=== PATIENT | male | born 1950 | race Caucasian/White ===

== ENCOUNTER 2021-08-05 09:56 | Outpatient (CLI) | payer MEDICARE ==
[2021-08-05 10:56] LABS: Hemoglobin 15.1 g/dL (13.5-17.5); Mean Corpuscular HGB CONC 33.7 g/dL (32.0-36.0); Mean Corpuscular Hemoglobin 30.8 pg (27.0-33.0); Mean Corpuscular Volume 91.2 fl (81.2-95.1); Mean Platelet Volume 9.2 fl (7.4-10.4); Platelet Count 192 10x3/uL (150-450); RBC Distribution Width 12.1 % (11.5-14.5); Red Blood Cell (RBC) Count 4.91 10x6/uL (4.32-5.72); White Blood Cell (WBC) Count 4.7 10x3/uL (3.5-10.5)
[2021-08-05 11:05] LABS: PTT 26.8 sec (22.0-33.0); Prothrombin Time 10.7 sec (9.5-12.1)
[2021-08-05 11:15] LABS: Anion Gap 11 mmol/L (10-20); BUN (Urea Nitrogen) 20 mg/dL (8.4-25.7); Calc. Creatinine Clearance 0 mL/min (70-130); Calcium 9.6 mg/dL (7.8-10.44); Carbon Dioxide 26 mmol/L (23-31); Chloride 107 mmol/L (98-107); Glucose 103 mg/dL (80-115); Potassium 4.4 mmol/L (3.5-5.1); Sodium 140 mmol/L (136-145)
[2021-08-05 19:56] LABS: SARS-CoV-2 PCR by NAA Not Detected (NotDetected)
== END 2021-08-05 09:57 | disposition home or self-care (01) ==
LOC: CSHLAB 09:56
PROVIDERS: ATTEND Specialist
DX: Z01.818 Encounter for other preprocedural examination (principal); Z20.822 Contact with and (suspected) exposure to COVID-19
CPT/HCPCS: 71045; 80048; 85027; 85610; 85730; U0003; U0005

== ENCOUNTER 2021-08-10 07:57 | Day surgery (SDC) | payer MEDICARE ==
[2021-08-10 08:55] VITALS: BP 137/67; TEMP 98
[2021-08-10] MEDS ORDERED: Fentanyl 100 MCG/2 ML VIAL ONE (09:03)
[2021-08-10] MEDS ORDERED: Midazolam HCl 2 mg/2 ml Vial ONE (09:04)
[2021-08-10] MEDS ORDERED: Atropine Sulfate 0.4 mg/1 ml Vial ONE (09:08)
[2021-08-10] MEDS ORDERED: PHENYLEPHRINE-NS 100 MCG/ML 10 ML SYRINGE ONE (09:09)
[2021-08-10] MEDS ORDERED: Lidocaine 1% (PF) 30 ML VIAL ONE (09:17)
[2021-08-10] MEDS ORDERED: Acetaminophen 325 MG TAB ONE (11:08)
== END 2021-08-10 13:05 | disposition home or self-care (01) ==
LOC: CSHSDC 07:57
PROVIDERS: ATTEND Specialist
DX: I65.23 Occlusion and stenosis of bilateral carotid arteries (principal); Q25.49 Other congenital malformations of aorta; I25.10 Atherosclerotic heart disease of native coronary artery without angina pectoris; G47.30 Sleep apnea, unspecified; E78.2 Mixed hyperlipidemia; Z79.899 Other long term (current) drug therapy; Z79.82 Long term (current) use of aspirin
CPT/HCPCS: 36222; 36227; C1760; 99152; J0461; J2001; J2250; J3010

== ENCOUNTER 2021-08-17 12:57 | Outpatient (CLI) | payer MEDICARE | END 2021-08-17 12:58 | disposition home or self-care (01) | LOC: CSHCT 12:57 | PROVIDERS: ATTEND Specialist | DX: M75.91 Shoulder lesion, unspecified, right shoulder (principal); M25.811 Other specified joint disorders, right shoulder; M19.011 Primary osteoarthritis, right shoulder | CPT/HCPCS: 71260 ==

== ENCOUNTER 2024-06-24 08:08 | Outpatient (CLI) | payer MEDICARE | END 2024-06-24 08:09 | disposition home or self-care (01) | LOC: CSHRAD 08:08 | PROVIDERS: ATTEND Nurse Practitioner | DX: J20.9 Acute bronchitis, unspecified (principal) | CPT/HCPCS: 71046 ==